=== PATIENT | male | born 1985 | race Caucasian/White ===

== ENCOUNTER 2019-02-16 19:17 | Emergency (ER) | payer MEDICAID ==
[~2019-02-16] VITALS: Ht 165.1 cm; Wt 105.0 kg
[2019-02-16 20:57] LABS: BASOPHILS % 1.1 % (0.0-2.0); EOSINOPHILS % 0.8 % (0.0-5.0); HEMATOCRIT. 44.3 % (42.0-52.0); LYMPHOCYTES % 43.4 % (20.0-50.0); MEAN CORPUSCULAR VOLUME 91.5 fL (80.0-94.0); MEAN PLATELET VOLUME 8.8 fl (7.4-10.4); MONOCYTES % 12.5 % (2.0-8.0); NEUTROPHILS % 42.2 % (40.0-76.0); PLATELET 250 x1000/uL (130-400); RED BLOOD CELL COUNT 4.84 mill/uL (4.7-6.1); RED CELL DISTRIBUTION WIDTH 14.7 % (11.6-14.6)
[2019-02-16 21:02] LABS: CHLORIDE 109 mEq/L (98-107)
[2019-02-16 21:39] LABS: ETHANOL BLOOD 474 mg/dL
[2019-02-16] MEDS ORDERED: CHLORDIAZEPOXIDE 25MG CAPSULE PO ONE (22:30)
[2019-02-16] MEDS ORDERED: HALOPERIDOL LACTATE 5MG/ML VIAL IM ONE (22:30)
[2019-02-17 09:20] VITALS: BP 126/72
== END 2019-02-17 09:23 | disposition home or self-care (01) ==
LOC: EDBD 19:17 → ER 19:17
DX: T51.0X1A Toxic effect of ethanol, accidental (unintentional), initial encounter (principal); X58.XXXA Exposure to other specified factors, initial encounter; G93.40 Encephalopathy, unspecified
CPT/HCPCS: 36415; 80053; 80307; 80320; 80329; 85025; 96372; 99283; J1630; G0480